=== PATIENT | female | born 1995 | race Caucasian/White ===

== ENCOUNTER 2019-04-20 09:25 | Emergency (ER) | payer BC ==
--- NOTE | 2019-04-20 09:58 | ER Document Report ---
ED Medical Screen (RME) - General Chief Complaint: Flu Symptoms Stated Complaint: VOMITING Time Seen by Provider: 04/20/19 09:53 TRAVEL OUTSIDE OF THE [place] IN LAST 30 DAYS: No - HPI Notes: 04/20/19 09:57 Patient is a 23-year-old female who is approximately 13 weeks with twins who presents complaining of harsh dry cough, body ache, intermittent fever, nausea/vomiting, occasional abdominal cramping over the past 3 days. Patient states that she is starting to feel dehydrated she has not been able to eat anything in a few days and came for evaluation. Denies HAMILTON, neck pain, CP, SOB, diarrhea, dysuria, or rash. I have treated and performed a rapid initial assessment of this patient. A comprehensive ED assessment and evaluation of the patient, analysis of test results and completion of medical decision making process will be conducted by additional ED providers. PHYSICAL EXAMINATION: GENERAL: Well-appearing, well-nourished and in no acute distress. A&Ox4. Answers questions appropriately. LUNGS: Breath sounds clear to auscultation bilaterally and equal. No wheezes rales or rhonchi. HEART: Regular rate and rhythm without murmurs, rubs, gallops. ABDOMEN: gravid abdomen. No guarding, no rebound. Normal bowel sounds present (cannot elicit thorough abd exam w/o bed, however). - Related Data Allergies/Adverse Reactions: ceftriaxone [From Rocephin] Allergy (Verified 04/20/19 09:34) Physical Exam - Vital signs Vitals: Temp Pulse Resp BP Pulse Ox 97.6 F 80 17 119/72 97 04/20/19 09:38 04/20/19 09:38 04/20/19 09:38 04/20/19 09:38 04/20/19 09:38 Course - Vital Signs Vital signs: Temp Pulse Resp BP Pulse Ox 97.6 F 80 17 119/72 97 04/20/19 09:38 04/20/19 09:38 04/20/19 09:38 04/20/19 09:38 04/20/19 09:38
[2019-04-20] MEDS ORDERED: METOCLOPRAMIDE HCL INJ/PF 10 MG/2 ML SDV IV ONE (09:59)
[2019-04-20] MEDS: NORMAL SALINE 1000 ML 1,000 ML IV PRN ×2 (10:36→11:45)
[2019-04-20 11:00] LABS: ABSOLUTE EOSINOPHILS # (AUTO) 0.1 10^3/uL (0.0-0.6); ABSOLUTE LYMPHOCYTES (AUTO) 0.8 10^3/uL (0.5-4.7); ABSOLUTE MONOCYTES (AUTO) 0.6 10^3/uL (0.1-1.4); ABSOLUTE NEUT (AUTO) 5.2 10^3/uL (1.7-8.2); BASOPHILS % (AUTO) 0.2 % (0-2); EOSINOPHILS % (AUTO) 1.2 % (0-6); HEMATOCRIT 39.6 % (36.0-47.0); HEMOGLOBIN 13.3 g/dL (12.0-15.5); LYMPHOCYTES % (AUTO) 11.9 % (13-45); MEAN CORPUSCULAR HEMOGLOBIN 28.6 pg (27.0-33.4); MEAN CORPUSCULAR HGB CONC 33.5 g/dL (32.0-36.0); MEAN CORPUSCULAR VOLUME 85 fl (80-97); MONOCYTES % (AUTO) 8.6 % (3-13); PLATELET COUNT 227 10^3/uL (150-450); RED BLOOD COUNT 4.64 10^6/uL (3.72-5.28); RED CELL DISTRIBUTION WIDTH 14.5 % (11.5-14.0); SEGMENTED NEUTROPHILS % (AUTO) 78.1 % (42-78); TOTAL CELLS COUNTED % (AUTO) 100 %; WHITE BLOOD COUNT 6.6 10^3/uL (4.0-10.5)
[2019-04-20 11:02] LABS: APPEARANCE,URINE CLOUDY; BILIRUBIN,URINE NEGATIVE (NEGATIVE); COLOR,URINE AMBER; GLUCOSE, URINE NEGATIVE (NEGATIVE); KETONES,URINE 80 mg/dL (NEGATIVE); LEUKOCYTE ESTERASE,URINE NEGATIVE (NEGATIVE); NITRITE,URINE NEGATIVE (NEGATIVE); PROTEIN,URINE 30 mg/dL (NEGATIVE); URINE SPECIFIC GRAVITY 1.024
[2019-04-20 11:34] LABS: ALANINE AMINOTRANSFERASE 31 U/L (9-52); ALKALINE PHOSPHATASE 65 U/L (38-126); ANION GAP 10 (5-19); ASPARTATE AMINO TRANSFERASE 39 U/L (14-36); BILIRUBIN,DIRECT 0.4 mg/dL (0.0-0.4); BILIRUBIN,TOTAL 0.7 mg/dL (0.2-1.3); BLOOD UREA NITROGEN 8 mg/dL (7-20); CALCIUM 9.2 mg/dL (8.4-10.2); CARBON DIOXIDE 23 mmol/L (22-30); CHLORIDE 102 mmol/L (98-107); GLUCOSE 79 mg/dL (75-110); LIPASE 56.5 U/L (23-300); POTASSIUM 4.4 mmol/L (3.6-5.0); SODIUM 134.6 mmol/L (137-145); TOTAL PROTEIN 7.2 g/dL (6.3-8.2)
--- NOTE | 2019-04-20 11:54 | RADIOLOGY REPORT (SQ) ---
EXAM DESCRIPTION: U/S [id number] TRNABD 1GES W/ODOP; U/S [id number] + EACH ADDIT GEST COMPLETED DATE/TIME: 04/20/2019 11:41 am; 04/20/2019 11:42 am REASON FOR STUDY: preg 13wks w. twins,intermittent pain, no bleeding; INTERMITTENT PAIN-TWINS COMPARISON: None. TECHNIQUE: Transvaginal static and realtime grayscale images acquired of the pelvis. Additional paulino cted spectral and color Doppler images recorded. All images stored on PACs. bHCG: Not available. CLINICAL DATES: 13 weeks 3 days LIMITATIONS: None. FINDINGS: Twin Intra-uterine gestation TYPE OF TWIN: Dichorionic Diamniotic. Two gestation sacs. Two yolk sacs. TWIN A: ULTRASOUND EGA: 13 weeks 3 days ULTRASOUND JENIFER: 10/23/2019 EFW: Not applicable. Under 20 weeks. CRL: 7.3 cm GESTATIONAL SAC: Not applicable. FP present. SURVEY: Too early to assess. FHR: 158 bpm. AMNIOTIC FLUID: Adequate amount. PLACENTA: Too early to assess. SUBCHORIONIC BLEED: No. SIZE OF BLEED: Not applicable. TWIN B: ULTRASOUND EGA: 13 weeks 5 days ULTRASOUND JENIFER: 10/21/2019 EFW: Not applicable. Under 20 weeks. CRL: 7.7 cm GESTATIONAL SAC: Not applicable. FP present. SURVEY: Too early to assess. FHR: 152 bpm. AMNIOTIC FLUID: Adequate amount. SUBCHORIONIC BLEED: No. SIZE OF BLEED: Not applicable. UTERUS: No masses. No anomalies. CERVICAL LENGTH: 4.0 cm. Closed. RIGHT ADNEXA: Ovary not identified due to poor acoustical window No adnexal free fluid. No adnexal masses. LEFT ADNEXA: Ovary not identified due to poor acoustical window No adnexal free fluid. No adnexal masses. FREE FLUID: None. OTHER: No other significant finding. IMPRESSION: LIVING TWIN INTRAUTERINE TWIN A EGA: 13 weeks 3 days. TWIN B EGA: 13 weeks 5 days. Trimester of : First - 0 to 13 weeks. TECHNICAL DOCUMENTATION: JOB ID: [id number] [employer]- All Rights Reserved Reading location - IP/workstation name: [email or web address]
--- NOTE | 2019-04-20 11:54 | RADIOLOGY REPORT (SQ) ---
EXAM DESCRIPTION: U/S [id number] TRNABD 1GES W/ODOP; U/S [id number] + EACH ADDIT GEST COMPLETED DATE/TIME: 04/20/2019 11:41 am; 04/20/2019 11:42 am REASON FOR STUDY: preg 13wks w. twins,intermittent pain, no bleeding; INTERMITTENT PAIN-TWINS COMPARISON: None. TECHNIQUE: Transvaginal static and realtime grayscale images acquired of the pelvis. Additional paulino cted spectral and color Doppler images recorded. All images stored on PACs. bHCG: Not available. CLINICAL DATES: 13 weeks 3 days LIMITATIONS: None. FINDINGS: Twin Intra-uterine gestation TYPE OF TWIN: Dichorionic Diamniotic. Two gestation sacs. Two yolk sacs. TWIN A: ULTRASOUND EGA: 13 weeks 3 days ULTRASOUND JENIFER: 10/23/2019 EFW: Not applicable. Under 20 weeks. CRL: 7.3 cm GESTATIONAL SAC: Not applicable. FP present. SURVEY: Too early to assess. FHR: 158 bpm. AMNIOTIC FLUID: Adequate amount. PLACENTA: Too early to assess. SUBCHORIONIC BLEED: No. SIZE OF BLEED: Not applicable. TWIN B: ULTRASOUND EGA: 13 weeks 5 days ULTRASOUND JENIFER: 10/21/2019 EFW: Not applicable. Under 20 weeks. CRL: 7.7 cm GESTATIONAL SAC: Not applicable. FP present. SURVEY: Too early to assess. FHR: 152 bpm. AMNIOTIC FLUID: Adequate amount. SUBCHORIONIC BLEED: No. SIZE OF BLEED: Not applicable. UTERUS: No masses. No anomalies. CERVICAL LENGTH: 4.0 cm. Closed. RIGHT ADNEXA: Ovary not identified due to poor acoustical window No adnexal free fluid. No adnexal masses. LEFT ADNEXA: Ovary not identified due to poor acoustical window No adnexal free fluid. No adnexal masses. FREE FLUID: None. OTHER: No other significant finding. IMPRESSION: LIVING TWIN INTRAUTERINE TWIN A EGA: 13 weeks 3 days. TWIN B EGA: 13 weeks 5 days. Trimester of : First - 0 to 13 weeks. TECHNICAL DOCUMENTATION: JOB ID: [id number] [employer]- All Rights Reserved Reading location - IP/workstation name: [email or web address]
--- NOTE | 2019-04-20 12:12 | ER Document Report ---
ED General - General Chief Complaint: Flu Symptoms Stated Complaint: VOMITING Time Seen by Provider: 04/20/19 09:53 Primary Care Provider: [facility] [Provider Group] - Follow up in 3-5 days Notes: Patient is a 23-year-old female, , approximately 13 weeks gravid with twins that presents to the emergency department for chief complaint of fever, nausea, vomiting and congestion. Patient reports having symptoms of sinus congestion, fever, nausea and vomiting over the past several days, and feels that she is getting dehydrated. She is had a slight cough as well. She states her children had congestion and cough. She started having the vomiting, and feels that she is getting dehydrated as well so that is why she came to the emergency department. She denies having any chest pain, shortness of breath or difficulty breathing, denies having any dysuria, hematuria. She also denies having any v aginal bleeding or discharge. Past Medical History: Denies chronic medical conditions Past Surgical History: Denies surgical history Social History: Denies tobacco, alcohol or drug use. Family History: Reviewed and noncontributory for presenting illness Allergies: Reviewed, see documented allergy list. REVIEW OF SYSTEMS: Other than noted above, the 12 point review of systems was reviewed with the patient and were negative, all pertinent findings are included in the HPI. PHYSICAL EXAMINATION: Vital signs reviewed, nursing noted reviewed. GENERAL: Well-appearing, well-nourished and in no acute distress. HEAD: Atraumatic, normocephalic. EYES: Eyes appear normal, extraocular movements intact, sclera anicteric, conjunctiva are normal. ENT: Bilateral nasal turbinate injection, oropharynx clear without exudates. Moist mucous membranes. NECK: Normal range of motion, supple without lymphadenopathy LUNGS: Breath sounds clear to auscultation bilaterally and equal. No wheezes rales or rhonchi. HEART: Heart rate tachycardic, regular rhythm ABDOMEN: Soft, gravid, nontender, normoactive bowel sounds. No rebound, guarding, or rigidity. No masses appreciated. EXTREMITIES: Nontender, good range of motion, no pitting or edema. NEUROLOGICAL: No focal neurological deficits. Moves all extremities spontaneously Motor and sensory grossly intact on exam. PSYCH: Normal mood, normal affect. SKIN: Warm, Dry, normal turgor, no rashes or lesions noted on exposed skin TRAVEL OUTSIDE OF THE [place] IN LAST 30 DAYS: No - Related Data Allergies/Adverse Reactions: ceftriaxone [From Rocephin] Allergy (Verified 04/20/19 09:34) Past Medical History - Social History Smoking Status: Never Smoker Chew tobacco use (# tins/day): No Frequency of alcohol use: None Drug Abuse: None Family History: Reviewed & Not Pertinent Patient has suicidal ideation: No Patient has homicidal ideation: No Renal/ Medical History: Denies: Hx Peritoneal Dialysis Physical Exam - Vital signs Vitals: Temp Pulse Resp BP Pulse Ox 97.6 F 80 17 119/72 97 04/20/19 09:38 04/20/19 09:38 04/20/19 09:38 04/20/19 09:38 04/20/19 09:38 Course - Re-evaluation Re-evalutation: Patient seen and examined vital signs reviewed. Laboratory data and/or imaging were ordered as appropriate for the patient's presenting symptoms and complaint, with consideration of any critical or life threatening conditions that may be associated with their obtained history and exam as noted above. Patient was treated with IV fluids, and Reglan ordered in triage Results were reviewed when available and demonstrated UA, possible urinary tract infection with 3+ bacteria, she ketones, was consistent with dehydration, no renal impairment, blood work otherwise unremarkable, obstetric ultrasound, revealed 2 live intrauterine twins The patient was re-evaluated and was stable, improved, nausea resolved Evaluation was most consistent with nausea, vomiting , UTI, dehydration, URI. Results were discussed with the patient at this point, after careful consideration I feel that that patient can be discharged from the emergency department, the patient was educated treatments and reasons to return to the emergency department based on their presumed diagnosis as noted above, they were advised to followup with a primary care physician in 2-3 days. Patient was agreeable to plan of care. *Note is created using voice recognition software and may contain spelling, syntax or grammatical errors. Laboratory 04/20/19 04/20/19 04/20/19 10:26 10:26 10:26 WBC 6.6 RBC 4.64 Hgb 13.3 Hct 39.6 MCV 85 MCH 28.6 MCHC 33.5 RDW 14.5 H Plt Count 227 Seg Neutrophils % 78.1 H Lymphocytes % 11.9 L Monocytes % 8.6 Eosinophils % 1.2 Basophils % 0.2 Absolute Neutrophils 5.2 Absolute Lymphocytes 0.8 Absolute Monocytes 0.6 Absolute Eosinophils 0.1 Absolute Basophils 0.0 Sodium 134.6 L Potassium 4.4 Chloride 102 Carbon Dioxide 23 Anion Gap 10 BUN 8 Creatinine 0.41 L Est GFR ( Amer) > 60 Est GFR (Non-Af Amer) > 60 Glucose 79 Calcium 9.2 Total Bilirubin 0.7 Direct Bilirubin 0.4 Neonat Total Bilirubin Not Reportable Neonat Direct Bilirubin Not Reportable Neonat Indirect Bili Not Reportable AST 39 H ALT 31 Alkaline Phosphatase 65 Total Protein 7.2 Albumin 4.0 Lipase 56.5 Urine Color NEVIN Urine Appearance CLOUDY Urine pH 5.0 Ur Specific [place] 1.024 Urine Protein 30 H Urine Glucose (UA) NEGATIVE Urine Ketones 80 H Urine Blood NEGATIVE Urine Nitrite NEGATIVE Urine Bilirubin NEGATIVE Urine Urobilinogen 4.0 H Ur Leukocyte Esterase NEGATIVE Urine WBC (Auto) 13 Urine RBC (Auto) 9 Urine Bacteria (Auto) 3+ Squamous Epi Cells Auto 3 Urine Mucus (Auto) FEW Urine Ascorbic Acid NEGATIVE Obstetrics Ultrasound 04/20/19 09:58 IMPRESSION: LIVING TWIN INTRAUTERINE TWIN A EGA: 13 weeks 3 days. TWIN B EGA: 13 weeks 5 days. Trimester of : First - 0 to 13 weeks. - Vital Signs Vital signs: Temp Pulse Resp BP Pulse Ox 98.0 F 84 18 111/53 L 98 04/20/19 13:00 04/20/19 13:00 04/20/19 13:00 04/20/19 13:00 04/20/19 13:00 - Laboratory Result Diagrams: 04/20/19 10:26 04/20/19 10:26 Laboratory results interpreted by me: 04/20/19 04/20/19 04/20/19 10:26 10:26 10:26 RDW 14.5 H Seg Neutrophils % 78.1 H Lymphocytes % 11.9 L Sodium 134.6 L Creatinine 0.41 L AST 39 H Urine Protein 30 H Urine Ketones 80 H Urine Urobilinogen 4.0 H Discharge - Discharge Clinical Impression: UTI (urinary tract infection) Qualifiers: Urinary tract infection type: site unspecified Hematuria presence: without hematuria Qualified Code(s): N39.0 - Urinary tract infection, site not specified URI (upper respiratory infection) Qualifiers: URI type: unspecified URI Qualified Code(s): J06.9 - Acute upper respiratory infection, unspecified Condition: Stable Disposition: HOME, SELF-CARE Instructions: Upper Respiratory Illness ([facility]), Urinary Tract Infection ([facility]) Additional Instructions: Please take the prescribed medications as directed, and complete the entire course of antibiotics, I have provided the [facility] office that is located here in [place], to follow-up with. Prescriptions: Metoclopramide HCl [Reglan 10 mg Tablet] 1 tab PO Q8H PRN #15 tablet PRN Reason: nausea, vomiting RX: Nitrofurantoin Macrocrystal [Macrodantin] 100 mg PO BID #10 capsule Referrals: [facility] [Provider Group] - Follow up in 3-5 days
[2019-04-20 13:03] VITALS: BP 111/53
== END 2019-04-20 13:02 | disposition home or self-care (01) ==
LOC: ER 09:25
DX: O23.41 Unspecified infection of urinary tract in pregnancy, first trimester (principal); J06.9 Acute upper respiratory infection, unspecified; O21.9 Vomiting of pregnancy, unspecified; O30.001 Twin pregnancy, unspecified number of placenta and unspecified number of amniotic sacs, first trimester; Z3A.13 13 weeks gestation of pregnancy
CPT/HCPCS: 99284; 96361; 96374; 36415; 87086; 83690; 85025; 87088; 80053; 81001; 76801; 76802; J2765; J7030

== ENCOUNTER 2019-08-31 09:51 | Outpatient (CLI) | payer BC ==
[2019-08-31 10:44] LABS: BACTERIA (WET MOUNT) 4+ BACTERIA SEEN; EPITHELIALS (WET MOUNT) 4+ EPITHELIALS SEEN; T.VAGINALIS (WET MOUNT) NO TRICHOMONAS SEEN; WBCS (WET MOUNT) FEW WBCS SEEN; YEAST (WET MOUNT) NO YEAST SEEN
[2019-08-31 10:49] LABS: APPEARANCE,URINE CLEAR; BILIRUBIN,URINE NEGATIVE (NEGATIVE); COLOR,URINE YELLOW; GLUCOSE, URINE NEGATIVE (NEGATIVE); KETONES,URINE NEGATIVE (NEGATIVE); LEUKOCYTE ESTERASE,URINE TRACE (NEGATIVE); NITRITE,URINE NEGATIVE (NEGATIVE); PROTEIN,URINE NEGATIVE (NEGATIVE); UROBILINOGEN,URINE NEGATIVE mg/dL (<2.0)
[2019-08-31 10:51] LABS: URINE SPECIFIC GRAVITY 1.017
[2019-08-31 11:17] LABS: URINE AMPHETAMINES SCREEN NEGATIVE; URINE BARBITURATES SCREEN NEGATIVE; URINE BENZODIAZEPINES SCREEN NEGATIVE; URINE COCAINE SCREEN NEGATIVE; URINE MARIJUANA (THC) SCREEN NEGATIVE; URINE METHADONE SCREEN NEGATIVE; URINE PHENCYCLIDINE SCREEN NEGATIVE
--- NOTE | 2019-08-31 11:45 | RADIOLOGY REPORT (SQ) ---
EXAM DESCRIPTION: U/S OB LIMITED COMPLETED DATE/TIME: 08/31/2019 11:32 am REASON FOR STUDY: cervical length COMPARISON: 08/31/2019 TECHNIQUE: Limited transabdominal grayscale ultrasound for evaluation of specific requested obstetri fabricio parameters. LIMITATIONS: None. FINDINGS: Limited imaging shows the cervix to be closed and measure 3.5 cm. heart motion was confirmed on the biophysical profile performed earlier. IMPRESSION: LIMITED OBSTETRICAL ULTRASOUND WITH MEASURED PARAMETERS DELINEATED ABOVE. Trimester of : Third trimester - 28 weeks to delivery. TECHNICAL DOCUMENTATION: JOB ID: [id number]- All Rights Reserved Reading location - IP/workstation name: [email or web address]
--- NOTE | 2019-08-31 11:48 | RADIOLOGY REPORT (SQ) ---
EXAM DESCRIPTION: U/S PROFILE W/O STRESS COMPLETED DATE/TIME: 08/31/2019 11:32 am REASON FOR STUDY: twin , BPP on both babies COMPARISON: None. TECHNIQUE: Limited shahid-scale realtime and static images of the fetus to measure specified parameter s. LIMITATIONS: None. FINDINGS: BABY A HEART RATE: 158 beats per minute. LV P 4.5 cm: BREATHING MOVEMENT: 2 points. MOVEMENT: 2 points. POSTURE AND TONE: 2 points. QUALITATIVE HARRIET: 2 points. OTHER: No other significant finding. IMPRESSION: BIOPHYSICAL PROFILE: 06/10. Trimester of : Third - 28 weeks to delivery COMMENT: BREATHING MOVEMENTS: 2 POINTS: PRESENT 0 POINTS: ABSENT MOTION: 2 POINTS: PRESENT 0 POINTS: ABSENT TONE: 2 POINTS: PRESENT 0 POINTS: ABSENT AMNIOTIC FLUID VOLUME: 2 POINTS: LARGEST POCKET GREATER THAN 2 CM DEPTH. 0 POINTS: NO POCKET OF 2 CM. TECHNICAL DOCUMENTATION: JOB ID: [id number] [employer]- All Rights Reserved Reading location - IP/workstation name: [email or web address]
--- NOTE | 2019-08-31 11:49 | RADIOLOGY REPORT (SQ) ---
EXAM DESCRIPTION: U/S PROFILE W/O STRESS COMPLETED DATE/TIME: 08/31/2019 11:32 am REASON FOR STUDY: twin , BPP on both babies COMPARISON: None. TECHNIQUE: Limited shahid-scale realtime and static images of the fetus to measure specified parameter s. LIMITATIONS: None. FINDINGS: BABY B HEART RATE: 150 beats per minute. LV P: 5 cm. BREATHING MOVEMENT: 2 points. MOVEMENT: 2 points. POSTURE AND TONE: 2 points. QUALITATIVE HARRIET: 2 points. OTHER: No other significant finding. IMPRESSION: BIOPHYSICAL PROFILE: 06/10. Trimester of : Third - 28 weeks to delivery COMMENT: BREATHING MOVEMENTS: 2 POINTS: PRESENT 0 POINTS: ABSENT MOTION: 2 POINTS: PRESENT 0 POINTS: ABSENT TONE: 2 POINTS: PRESENT 0 POINTS: ABSENT AMNIOTIC FLUID VOLUME: 2 POINTS: LARGEST POCKET GREATER THAN 2 CM DEPTH. 0 POINTS: NO POCKET OF 2 CM. TECHNICAL DOCUMENTATION: JOB ID: [id number] [employer]- All Rights Reserved Reading location - IP/workstation name: [email or web address]
[2019-08-31 12:15] LABS: CHLAM PCR NOT DETECTED (NOT DETECT)
[2019-08-31] MEDS ORDERED: BETAMET ACET/BETAMET NA INJ 6 MG/1 ML ONE (12:25)
[2019-08-31] MEDS ORDERED: BETAMET ACET/BETAMET NA INJ 6 MG/1 ML IM ONE ×2 (12:37→13:00)
--- NOTE | 2019-08-31 13:03 | Non Stress Test Report ---
Non Stress Test Datetime Report Generated by CPN: 08/31/2019 13:02 DEMOGRAPHIC EGA NST: 32.3 INDICATION Indication for Study: Multiple Gestation; Ordered by Provider Indication for Study (NST) Other: LC MONITORING Monitor Explained: Monitor Explained; Test Explained; Patient Verbalized Understanding Time on Monitor: 08/31/2019 11:30 Time off Monitor: 08/31/2019 12:25 NST Duration: 55 NST INTERVENTIONS NST Interventions: None Physician Notified NST: Dr. Swartz BABY A: [id number] BABY A Movement : Present Contraction Frequency : irregular FHR Baseline : 140 Accelerations : 15X15 Decelerations : None Variability : Moderate 6-25bpm NST Review: Meets Criteria for Reactive NST NST Review and Verified By : Ana Lilia Wilson RN NST Results: Reactive BABY B Movement: Present FHR Baseline: 145 Accelerations: 15X15 Decelerations: None Variability: Moderate 6-25bpm NST Review: Meets Criteria for Reactive NST NST Reviewed And Verified By: Ana Lilia Wilson, RN NST Results: Reactive NST REPORT Report Trigger: Send Report
== END 2019-08-31 12:44 | disposition home or self-care (01) ==
LOC: LC 09:51
PROVIDERS: ATTEND Student in an Organized Health Care Education/Training Program
PROC: 4A1HXCZ Monitoring of Products of Conception, Cardiac Rate, External Approach (ICD-10-PCS; principal; 2019-08-31)
DX: O30.003 Twin pregnancy, unspecified number of placenta and unspecified number of amniotic sacs, third trimester (principal); Z3A.32 32 weeks gestation of pregnancy
CPT/HCPCS: 59899; 96372; 87210; 81001; 80307; 87491; 87591; 84112; 76815; 76819; J0702

== ENCOUNTER → 2019-09-01 | Outpatient (CLI) | payer BC ==
[~2019-09-01] MED LIST: BETAMET ACET/BETAMET NA INJ 6 MG/1 ML IM ONE; BETAMET ACET/BETAMET NA INJ 6 MG/1 ML ONE
== END ==
LOC: LC 12:40
PROVIDERS: ATTEND Student in an Organized Health Care Education/Training Program
DX: O47.9 False labor, unspecified (principal)
CPT/HCPCS: 96372; J0702

== ENCOUNTER 2019-09-06 17:12 | Outpatient (CLI) | payer BC ==
[2019-09-06 18:06] LABS: APPEARANCE,URINE CLEAR; BILIRUBIN,URINE NEGATIVE (NEGATIVE); COLOR,URINE STRAW; GLUCOSE, URINE NEGATIVE (NEGATIVE); KETONES,URINE NEGATIVE (NEGATIVE); LEUKOCYTE ESTERASE,URINE NEGATIVE (NEGATIVE); NITRITE,URINE NEGATIVE (NEGATIVE); PROTEIN,URINE NEGATIVE (NEGATIVE); URINE SPECIFIC GRAVITY 1.005; UROBILINOGEN,URINE NEGATIVE mg/dL (<2.0)
[2019-09-06 18:21] LABS: URINE AMPHETAMINES SCREEN NEGATIVE; URINE BARBITURATES SCREEN NEGATIVE; URINE BENZODIAZEPINES SCREEN NEGATIVE; URINE COCAINE SCREEN NEGATIVE; URINE MARIJUANA (THC) SCREEN NEGATIVE; URINE METHADONE SCREEN NEGATIVE; URINE PHENCYCLIDINE SCREEN NEGATIVE
--- NOTE | 2019-09-06 20:39 | Non Stress Test Report ---
Non Stress Test Datetime Report Generated by CPN: 09/06/2019 20:39 DEMOGRAPHIC EGA NST: 33.2 INDICATION Indication for Study: Ordered by Provider URINE RESULTS Urine Protein, NST: Negative MONITORING Monitor Explained: Monitor Explained; Test Explained; Patient Verbalized Understanding Time on Monitor: 09/06/2019 20:05 Time off Monitor: 09/06/2019 20:25 NST Duration: 20 NST INTERVENTIONS NST Interventions: PO Hydration Physician Notified NST: Dr. Younger BABY A: [id number] BABY A Movement : Present Contraction Frequency : None FHR Baseline : 145 Accelerations : 15X15 Decelerations : None Variability : Moderate 6-25bpm NST Review: Meets Criteria for Reactive NST NST Review and Verified By : RN NST Results: Reactive BABY B Movement: Present FHR Baseline: 135 Accelerations: 15X15 Decelerations: None Variability: Moderate 6-25bpm NST Review: Meets Criteria for Reactive NST NST Reviewed And Verified By: RN NST Results: Reactive NST REPORT Report Trigger: Send Report
== END 2019-09-06 20:38 | disposition home or self-care (01) ==
LOC: LC 17:12
PROVIDERS: ATTEND Obstetrics & Gynecology
PROC: 4A1HXCZ Monitoring of Products of Conception, Cardiac Rate, External Approach (ICD-10-PCS; principal; 2019-09-06)
DX: O47.03 False labor before 37 completed weeks of gestation, third trimester (principal); Z3A.33 33 weeks gestation of pregnancy
CPT/HCPCS: 80307; 81001

== ENCOUNTER 2019-09-16 11:14 | Inpatient (IN) | payer BC ==
[2019-09-16 12:22] LABS: APPEARANCE,URINE SLIGHTLY-CLOUDY; BILIRUBIN,URINE NEGATIVE (NEGATIVE); COLOR,URINE YELLOW; GLUCOSE, URINE NEGATIVE (NEGATIVE); KETONES,URINE NEGATIVE (NEGATIVE); LEUKOCYTE ESTERASE,URINE NEGATIVE (NEGATIVE); NITRITE,URINE NEGATIVE (NEGATIVE); PROTEIN,URINE 30 mg/dL (NEGATIVE); UROBILINOGEN,URINE NEGATIVE mg/dL (<2.0)
[2019-09-16 12:40] LABS: URINE AMPHETAMINES SCREEN NEGATIVE; URINE BARBITURATES SCREEN NEGATIVE; URINE BENZODIAZEPINES SCREEN NEGATIVE; URINE COCAINE SCREEN NEGATIVE; URINE MARIJUANA (THC) SCREEN NEGATIVE; URINE METHADONE SCREEN NEGATIVE; URINE PHENCYCLIDINE SCREEN NEGATIVE
[2019-09-16] MEDS ORDERED: CLINDAMYCIN 900 MG/D5W RTU 900 MG/50 ML RTUPB IV ONE ×2 (12:43→13:38)
[2019-09-16] MEDS ORDERED: CITRIC ACID/SODIUM CITRATE ORAL SOLN 15 ML UDCUP PO ONE (12:45)
--- NOTE | 2019-09-16 12:52 | Admission Physical ---
Datetime Report Generated by CPN: 09/16/2019 12:52 CURRENT ADMISSION Chief Complaint: Maternal Discomfort; Sent from OB Office for Evaluation and Treatment - Please Specify Admit Impression : , Intrauterine ; Active Labor Admit Impression- Other: Di/Di Twins Admit Plan: Admit to Unit; Initiate Section Protocol ALLERGIES Medication Allergies: Yes Medication Allergies: ceftriaxone (09/01/2019) Latex: No Latex Allergies OBSTETRICAL HISTORY EDC: 10/23/2019 00:00 : 3 Para: 2 Livin Gestational Diabetes: No Rh Sensitization: No Incompetent Cervix: No : No Infertility: No ART Treatment: No Uterine Anomaly: No IUGR: No Hx Previous C/S: No Macrosomia: No Hx Loss/Stillborn: No PIH: No Hx : No Placenta Previa/Abruption: No Depression/PP Depression: No PTL/PROM: No Post Hemorrhage: No SEE RECORDS Alcohol: No Marijuana : No Cocaine: No Other Illicit Drugs: No Cigarettes: Never Smoker. 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 Heart Disease: No Hosp/Surgery: Yes Autoimmune Disorder: No Anesthetic Complications: No Kidney Disease: No Abnormal Pap Smear: No Neuro/Epilepsy: No Psychiatric Disorders: No Other Medical Diseases: No Hepatitis/Liver Disease: No Significant Family History: No Varicosities/Phlebitis: No Trauma/Violence : No Thyroid Dysfunction: No INFECTIOUS HISTORY Gonorrhea: No Genital Herpes: No Chlamydia: No Tuberculosis: No Syphilis: No Hepatitis: No HIV/AIDS Exposure: No Rash or Viral Illness: No HPV: No PHYSICAL EXAM General: Normal HEENT: Normal Neurologic: Normal Thyroid: Normal Heart: Normal Lungs: Normal Breast: Normal Back: Normal Abdomen: Normal Genitourinary Exam: Normal Extremities: Normal DTRs: Normal Pelvic Type: Adequate Vital Signs: Reviewed; Within Normal Limits VAGINAL EXAM Dilatation: 5 Effacement: 70 Station: -1 MEMBRANES Membranes: Intact FETUS A EGA: 34.5 Monitoring: External US FHR- Baseline: 150 Variability: Moderate 6-25bpm Accelerations: 15X15 Decelerations: None FHR Category: Category I Admit Comment: at 34.5 wks w/ Twins. Pt sent over from the office after c/o lower uterine cramping. Pt was 3cm in the office. She is a planned Primary due to baby B being breech and pt desires a BTL. Pt has become more uncomfortable here on Labor and Delivery unit. VE /-1, baby a Vtx presentation on exam. Dr Corcoran is the attending MD today, informed him of pts cervical change. Will proceed w/ Primary w/ BTL of twin gestation. FETUS B Monitoring: External US Variability: Moderate 6-25bpm Accelerations: 15X15 Decelerations: None FHR Category: Category I PLANS FOR LABOR AND DELIVERY Labor and Delivery: None Pain Management: Spinal Feeding Preference: Breast Benefit of Breast Feed Discussed: Yes Circumcision: Yes INFORMED CONSENT Assignment: Irina Corcoran MD Signature: with User ID: [email or web address] : with User ID: [email or web address]
[2019-09-16 13:38] LABS: ABSOLUTE EOSINOPHILS # (AUTO) 0.1 10^3/uL (0.0-0.6); ABSOLUTE LYMPHOCYTES (AUTO) 1.7 10^3/uL (0.5-4.7); ABSOLUTE MONOCYTES (AUTO) 0.8 10^3/uL (0.1-1.4); ABSOLUTE NEUT (AUTO) 7.6 10^3/uL (1.7-8.2); BASOPHILS % (AUTO) 0.4 % (0-2); EOSINOPHILS % (AUTO) 0.7 % (0-6); HEMATOCRIT 31.4 % (36.0-47.0); LYMPHOCYTES % (AUTO) 16.9 % (13-45); MEAN CORPUSCULAR HEMOGLOBIN 21.9 pg (27.0-33.4); MEAN CORPUSCULAR HGB CONC 31.9 g/dL (32.0-36.0); MEAN CORPUSCULAR VOLUME 69 fl (80-97); MONOCYTES % (AUTO) 7.9 % (3-13); PLATELET COUNT 191 10^3/uL (150-450); RED BLOOD COUNT 4.58 10^6/uL (3.72-5.28); RED CELL DISTRIBUTION WIDTH 20.1 % (11.5-14.0); SEGMENTED NEUTROPHILS % (AUTO) 74.1 % (42-78); TOTAL CELLS COUNTED % (AUTO) 100 %; WHITE BLOOD COUNT 10.3 10^3/uL (4.0-10.5)
[2019-09-16] MEDS ORDERED: CITRIC ACID/SODIUM CITRATE ORAL SOLN 15 ML UDCUP ONE (13:45)
[2019-09-16] MEDS ORDERED: KETOROLAC TROMETHAMINE INJ/PF 30 MG/1 ML SDV ONE (14:13)
[2019-09-16] MEDS ORDERED: OXYTOCIN 10 UNIT/ML VIAL ONE (14:13)
[2019-09-16] MEDS ORDERED: MIDAZOLAM 2 MG/2 ML INJ ONE (14:13)
[2019-09-16] MEDS ORDERED: EPHEDRINE SULFATE INJ 50 MG/1 ML AMPULE ONE (14:13)
[2019-09-16] MEDS ORDERED: FENTANYL CITRATE INJ/PF 100 MCG/2 ML AMPUL ONE (14:13)
[2019-09-16] MEDS ORDERED: PHENYLEPHRINE HCL INJ/PF 10 MG/1 ML SDV ONE (14:14)
[2019-09-16] MEDS ORDERED: OXYTOCIN/NORMAL SALINE 20 UNIT/1,000 ML RTUINJ ONE (14:14)
[2019-09-16] MEDS ORDERED: ONDANSETRON HCL INJ/PF 4 MG/2 ML SDV ONE (14:14)
[2019-09-16] MEDS ORDERED: RINGERS SOLUTION,LACTATED 1,000 ML IV PRN (15:40)
[2019-09-16] MEDS ORDERED: ACETAMINOPHEN 325 MG TABLET PO PRN (15:40)
[2019-09-16] MEDS ORDERED: OXYTOCIN/NORMAL SALINE 20 UNIT/1,000 ML RTUINJ IV PRN (15:40)
[2019-09-16] MEDS ORDERED: DIPH/PERTUSS(ACELL)/TETANUS VAC/PF 0.5 ML SYR (>=10YO) IM PRN (15:40)
[2019-09-16] MEDS ORDERED: MEASLES,MUMPS&RUBELLA VACC/PF 0.5 ML VIAL SUBCUT PRN (15:40)
[2019-09-16] MEDS ORDERED: OXYCODONE-ACETAMINOPHEN 5-325 MG TABLET PO PRN (15:40)
[2019-09-16] MEDS ORDERED: ACETAMINOPHEN 1,000 MG/100 ML RTUPB IV PRN (15:40)
[2019-09-16] MEDS ORDERED: PROMETHAZINE HCL INJ 25 MG/1 ML VIAL IV PRN (15:40)
--- NOTE | 2019-09-16 15:47 | Operative Report ---
Operative Report DATE OF SURGERY: 09/16/19 PREOPERATIVE DIAGNOSIS: Twins with twin B being breech and patient desires tubal ligation with Filshie clips POSTOPERATIVE DIAGNOSIS: Same OPERATION: Primary via low transverse uterine incision and tubal ligation with Filshie clips SURGEON: TERESA BECK ANESTHESIA: Spinal TISSUE REMOVED OR ALTERED: Placenta COMPLICATIONS: None ESTIMATED BLOOD LOSS: 400 cc INTRAOPERATIVE FINDINGS: Viable twins, normal uterus tubes ovaries PROCEDURE: Patient was taken to the OR and placed in supine position after her spinal anesthesia. She is prepared and draped in sterile fashion. Stiles was placed for drainage of the bladder. Low transverse incision was made and carried down the level of the fascia. The fascial incision was made with knife and extended bilaterally with curved Carney scissors. The fascia was off the rectus muscles using sharp and blunt dissection. The rectus muscles are in the midline. The peritoneum was entered without incident. Bladder blade was placed in uterine segment was identified. A low transverse incision was made creating a bladder flap. Bladder blade was placed low transverse uterine incision was made with the knife and extended with fingertips. Baby A was delivered with some fundal pressure. Mouth and nose were suctioned free. The cord is doubly clamped and cut. Baby is passed off to the president/gm production & live experiences in attendance. Baby B was delivered in a breech fashion. The cord was clamped and cut. This baby also was passed off to the president/gm production & live experiences. The placentas were manually extracted with trailing membranes. The uterus was externalized wrapped in a moist lap sponge. Uterine contents wiped free. Uterus was closed with a running locking layer of 0 chromic suture using the second layer to imbricate the first completing a double layer closure of the uterus. An [place] stitch was placed using 0 chromic at the left side of the uterine incision to site stop some oozing. The serosa was closed with a running 2-0 chromic stitch. Filshie clips were placed bilaterally at the mid isthmic portion of each tube. The pelvis was irrigated and suctioned free of fluid the uterus was replaced in the abdomen. The abdominal wall peritoneum was closed with running 2-0 chromic stitch. Fascia was closed with a running 0 Vicryl in 2 segments. Oksana's layer was brought together with 0 plain gut stitch and the skin was closed with running subcuticular 4-0 undyed Vicryl stitch. The wound was dressed mother and baby did well.
[2019-09-16] MEDS ORDERED: ACETAMINOPHEN 1,000 MG/100 ML RTUPB IV ONE (16:42)
[2019-09-16] MEDS ORDERED: HYDROMORPHONE HCL INJ/PF 2 MG/ML AMPULE ONE (17:20)
[2019-09-16] MEDS: HYDROMORPHONE HCL INJ/PF 2 MG/ML AMPULE IV PRN ×2 (17:23→21:33)
[2019-09-16] MEDS ORDERED: IBUPROFEN 800 MG TABLET PO SCH (18:00)
[2019-09-16] MEDS: DOCUSATE SODIUM 100 MG CAPSULE PO SCH (18:56)
[2019-09-16] MEDS: OXYCODONE-ACETAMINOPHEN 5-325 MG TABLET PO PRN (18:56)
[2019-09-16] MEDS: KETOROLAC TROMETHAMINE INJ/PF 30 MG/1 ML SDV IV SCH (22:59)
[2019-09-17] MEDS: OXYCODONE-ACETAMINOPHEN 5-325 MG TABLET PO PRN ×4 (01:02→19:41)
[2019-09-17] MEDS: HYDROMORPHONE HCL INJ/PF 2 MG/ML AMPULE IV PRN (03:39)
[2019-09-17] MEDS: KETOROLAC TROMETHAMINE INJ/PF 30 MG/1 ML SDV IV SCH (06:27)
[2019-09-17] MEDS: SIMETHICONE 80 MG TAB.CHEW PO PRN (07:58)
[2019-09-17] MEDS: DOCUSATE SODIUM 100 MG CAPSULE PO SCH ×2 (10:41→19:40)
[2019-09-17] MEDS: PRENATAL VITAMIN W DHA CAPSULE PO SCH (10:41)
[2019-09-17 11:54] LABS: ABSOLUTE EOSINOPHILS # (AUTO) 0.1 10^3/uL (0.0-0.6); ABSOLUTE LYMPHOCYTES (AUTO) 1.5 10^3/uL (0.5-4.7); ABSOLUTE MONOCYTES (AUTO) 0.9 10^3/uL (0.1-1.4); ABSOLUTE NEUT (AUTO) 11.6 10^3/uL (1.7-8.2); BASOPHILS % (AUTO) 0.2 % (0-2); EOSINOPHILS % (AUTO) 0.5 % (0-6); HEMATOCRIT 30.6 % (36.0-47.0); HEMOGLOBIN 9.4 g/dL (12.0-15.5); LYMPHOCYTES % (AUTO) 10.9 % (13-45); MEAN CORPUSCULAR HEMOGLOBIN 21.4 pg (27.0-33.4); MEAN CORPUSCULAR HGB CONC 30.8 g/dL (32.0-36.0); MEAN CORPUSCULAR VOLUME 69 fl (80-97); MONOCYTES % (AUTO) 6.7 % (3-13); PLATELET COUNT 165 10^3/uL (150-450); RED BLOOD COUNT 4.42 10^6/uL (3.72-5.28); RED CELL DISTRIBUTION WIDTH 20.3 % (11.5-14.0); SEGMENTED NEUTROPHILS % (AUTO) 81.7 % (42-78); TOTAL CELLS COUNTED % (AUTO) 100 %; WHITE BLOOD COUNT 14.2 10^3/uL (4.0-10.5)
--- NOTE | 2019-09-17 12:40 | PDOC PROGRESS REPORT ---
Subjective-OB Progress Note for:: 09/17/19 Subjective: reports bleeding slowing, pain controlled with current meds, denies needs, not passing gas, took simethicone this morning Physical Exam (OB) Vital Signs: Temp Pulse Resp BP Pulse Ox 98.2 F 88 16 105/72 95 09/17/19 07:23 09/17/19 07:23 09/17/19 04:20 09/17/19 07:23 09/17/19 07:23 Intake & Output 09/16/19 09/17/19 09/18/19 06:59 06:59 06:59 Intake Total 1600 Output Total 1300 Balance 300 Weight 105.7 kg - PIH/Pre-Eclampsia Clonus: Negative - Dressing Removed: No Incision: Dressing, Well Approximated Closure Type: op site - Abdomen Description: Soft, Round Hernia Present: No Bowel Sounds: Hypoactive Fundal Description: Firm, Midline Fundal Height: 1/u - 2/u - Abdominal Distension: Distended - slight Tenderness: Nontender - Extremities Lower extremities: Pallavi's sign - neg Calf: Normal, Nontender Objective-Diagnostic Laboratory: 09/17/19 10:59 09/16/19 09/16/19 09/17/19 13:16 13:16 10:59 WBC 10.3 14.2 H RBC 4.58 4.42 Hgb 10.0 L 9.4 L Hct 31.4 L 30.6 L MCV 69 L 69 L MCH 21.9 L 21.4 L MCHC 31.9 L 30.8 L RDW 20.1 H 20.3 H Plt Count 191 165 Seg Neutrophils % 74.1 81.7 H Blood Type A POSITIVE Antibody Screen NEGATIVE Assessment and Plan(PN) - Assessment and Plan (1) labor in third trimester Qualifiers: labor delivery status: with delivery in third trimester Is this a current diagnosis for this admission?: Yes (2) Twin , delivered by section, current hospitalization Is this a current diagnosis for this admission?: Yes - Time Spent with Patient Time with patient: Less than 15 minutes Medications reviewed and adjusted accordingly: Yes - Disposition Anticipated Discharge: Home Within: within 48 hours
[2019-09-17] MEDS ORDERED: IBUPROFEN 800 MG TABLET PO SCH (13:30)
[2019-09-17] MEDS ORDERED: HYDROMORPHONE HCL 2 MG TABLET PO PRN (13:57)
[2019-09-17] MEDS: IBUPROFEN 800 MG TABLET PO SCH ×2 (14:11→21:17)
[2019-09-17] MEDS: HYDROMORPHONE HCL 2 MG TABLET PO PRN (21:17)
[2019-09-18] MEDS: SIMETHICONE 80 MG TAB.CHEW PO PRN (02:52)
[2019-09-18] MEDS: OXYCODONE-ACETAMINOPHEN 5-325 MG TABLET PO PRN ×4 (02:53→18:41)
[2019-09-18] MEDS: HYDROMORPHONE HCL 2 MG TABLET PO PRN (05:47)
[2019-09-18] MEDS: IBUPROFEN 800 MG TABLET PO SCH ×3 (05:48→22:18)
--- NOTE | 2019-09-18 08:29 | PDOC PROGRESS REPORT ---
Subjective-OB Progress Note for:: 09/18/19 Subjective: reports bleeding slowing, pain controlled with current meds, + passing gas, denies needs Physical Exam (OB) Vital Signs: Temp Pulse Resp BP Pulse Ox 97.8 F 80 16 116/68 96 09/18/19 03:04 09/18/19 03:04 09/18/19 03:04 09/18/19 03:04 09/18/19 03:04 Intake & Output 09/17/19 09/18/19 09/19/19 06:59 06:59 06:59 Intake Total 1600 1600 Output Total 1300 Balance 300 1600 Weight 105.7 kg - Dressing Removed: No - opsite, dry drain Incision: Dressing Closure Type: op site - Abdomen Description: Soft, Round Hernia Present: No Fundal Description: Firm, Midline Fundal Height: u/u - u/2 - Abdominal Inspection: Normal Distension: No distension Tenderness: Nontender - Extremities Lower extremities: Pallavi's sign - neg Calf: Normal, Nontender Objective-Diagnostic Laboratory: 09/17/19 10:59 09/17/19 10:59 WBC 14.2 H RBC 4.42 Hgb 9.4 L Hct 30.6 L MCV 69 L MCH 21.4 L MCHC 30.8 L RDW 20.3 H Plt Count 165 Seg Neutrophils % 81.7 H Assessment and Plan(PN) - Assessment and Plan (1) labor in third trimester Qualifiers: labor delivery status: with delivery in third trimester Is this a current diagnosis for this admission?: Yes (2) Twin , delivered by section, current hospitalization Is this a current diagnosis for this admission?: Yes - Time Spent with Patient Medications reviewed and adjusted accordingly: Yes - Disposition Anticipated Discharge: Home Within: within 24 hours
[2019-09-18] MEDS: PRENATAL VITAMIN W DHA CAPSULE PO SCH (10:36)
[2019-09-18] MEDS: DOCUSATE SODIUM 100 MG CAPSULE PO SCH ×3 (10:36→18:41)
[2019-09-19] MEDS: OXYCODONE-ACETAMINOPHEN 5-325 MG TABLET PO PRN ×2 (04:14→09:36)
[2019-09-19] MEDS: IBUPROFEN 800 MG TABLET PO SCH ×2 (05:14→13:55)
[2019-09-19] MEDS: PRENATAL VITAMIN W DHA CAPSULE PO SCH (09:37)
[2019-09-19] MEDS: DOCUSATE SODIUM 100 MG CAPSULE PO SCH ×2 (09:38→17:24)
--- NOTE | 2019-09-19 11:38 | PDOC DISCHARGE SUMMARY ---
Impression - Admit/DC Date/PCP Admission Date/Primary Care Provider: 09/16/19 12:40 TERESA BECK MD Discharge Date: 09/19/19 - Discharge Diagnosis (1) labor in third trimester Is this a current diagnosis for this admission?: Yes (2) Twin , delivered by section, current hospitalization Is this a current diagnosis for this admission?: Yes - Additional Information Discharge Diet: Regular Discharge Activity: Balance Activity w/Rest, No Lifting Over 10 Pounds, No Lifting/Push/Pulling, Pelvic Rest, No tub bath Referrals: [facility] [Provider Group] Prescriptions: Ibuprofen [Motrin 800 mg Tablet] 800 mg PO Q8HP PRN #90 tablet PRN Reason: Oxycodone HCl/Acetaminophen [Percocet 5-325 mg Tablet] 1 tab PO Q4HP PRN #30 tablet PRN Reason: Home Medications: Vitamin [-U Multiple Vitamin Capsule] 1 tab PO DAILY 08/31/19 Ibuprofen [Motrin 800 mg Tablet] 800 mg PO Q8HP PRN #90 tablet 09/19/19 Oxycodone HCl/Acetaminophen [Percocet 5-325 mg Tablet] 1 tab PO Q4HP PRN #30 tablet 09/19/19 HPI Gestational Age: 34+5 Reason(s) for Admission: Onset of Labor Procedures: NST Intrapartum Procedure(s): : Low Cervical, Transverse Hospital Course Hospital Course: PL then c/s for baby B breech. normal PP day #3, ready for discharge Results Laboratory Results: WBC 14.2 10^3/uL (4.0-10.5) H 09/17/19 10:59 RBC 4.42 10^6/uL (3.72-5.28) 09/17/19 10:59 Hgb 9.4 g/dL (12.0-15.5) L 09/17/19 10:59 Hct 30.6 % (36.0-47.0) L 09/17/19 10:59 MCV 69 fl (80-97) L 09/17/19 10:59 MCH 21.4 pg (27.0-33.4) L 09/17/19 10:59 MCHC 30.8 g/dL (32.0-36.0) L 09/17/19 10:59 RDW 20.3 % (11.5-14.0) H 09/17/19 10:59 Plt Count 165 10^3/uL (150-450) 09/17/19 10:59 Lymph % (Auto) 10.9 % (13-45) L 09/17/19 10:59 Tripp % (Auto) 6.7 % (3-13) 09/17/19 10:59 Eos % (Auto) 0.5 % (0-6) 09/17/19 10:59 Baso % (Auto) 0.2 % (0-2) 09/17/19 10:59 Absolute Neuts (auto) 11.6 10^3/uL (1.7-8.2) H 09/17/19 10:59 Absolute Lymphs (auto) 1.5 10^3/uL (0.5-4.7) 09/17/19 10:59 Absolute Monos (auto) 0.9 10^3/uL (0.1-1.4) 09/17/19 10:59 Absolute Eos (auto) 0.1 10^3/uL (0.0-0.6) 09/17/19 10:59 Absolute Basos (auto) 0.0 10^3/uL (0.0-0.2) 09/17/19 10:59 Seg Neutrophils % 81.7 % (42-78) H 09/17/19 10:59 Urine Color YELLOW 09/16/19 11:25 Urine Appearance SLIGHTLY-CLOUDY 09/16/19 11:25 Urine pH 6.0 (5.0-9.0) 09/16/19 11:25 Ur Specific [place] 1.020 09/16/19 11:25 Urine Protein 30 mg/dL (NEGATIVE) H 09/16/19 11:25 Urine Glucose (UA) NEGATIVE mg/dL (NEGATIVE) 09/16/19 11:25 Urine Ketones NEGATIVE mg/dL (NEGATIVE) 09/16/19 11:25 Urine Blood NEGATIVE (NEGATIVE) 09/16/19 11:25 Urine Nitrite NEGATIVE (NEGATIVE) 09/16/19 11:25 Urine Bilirubin NEGATIVE (NEGATIVE) 09/16/19 11:25 Urine Urobilinogen NEGATIVE mg/dL (<2.0) 09/16/19 11:25 Ur Leukocyte Esterase NEGATIVE (NEGATIVE) 09/16/19 11:25 Urine WBC (Auto) 3 /HPF 09/16/19 11:25 Urine Bacteria (Auto) TRACE /HPF 09/16/19 11:25 Squamous Epi Cells Auto 2 /HPF 09/16/19 11:25 Urine Mucus (Auto) FEW /LPF 09/16/19 11:25 Urine Ascorbic Acid NEGATIVE (NEGATIVE) 09/16/19 11:25 Membranes Rupture NEGATIVE (NEGATIVE) 09/16/19 11:54 Urine Opiates Screen NEGATIVE 09/16/19 11:25 Urine Methadone Screen NEGATIVE 09/16/19 11:25 Ur Barbiturates Screen NEGATIVE 09/16/19 11:25 Ur Phencyclidine Scrn NEGATIVE 09/16/19 11:25 Ur Amphetamines Screen NEGATIVE 09/16/19 11:25 U Benzodiazepines Scrn NEGATIVE 09/16/19 11:25 Urine Cocaine Screen NEGATIVE 09/16/19 11:25 U Marijuana (THC) Screen NEGATIVE 09/16/19 11:25 RPR NONREACTIVE (NONREACTIVE) 09/16/19 13:16 Chlamydia DNA (PCR) Cancelled 09/16/19 11:25 N.gonorrhoeae DNA (PCR) Cancelled 09/16/19 11:25 Blood Type A POSITIVE 09/16/19 13:16 Antibody Screen NEGATIVE 09/16/19 13:16 Plan Plan of Treatment: f/u at [facility] in 1 week for incision check
[2019-09-19 11:40] VITALS: BP 114/62
--- NOTE | 2019-09-21 12:37 | Delivery Summary ---
Del Sum A-C Datetime Report Generated by CPN: 09/21/2019 12:37 DELIVERY PERSONNEL DELIVERY PERSONNEL: [id number] Delivery Doctor:: Irina Corcoran MD Delivery Doctor:: Irina Corcoran MD Anesthesiologist:: Bessy Carlton MD Anesthesiologist:: Bessy Carlton MD GEOTHERMAL ELECTRICAL ENGINEER:: Avelino Stapleton CRNA GEOTHERMAL ELECTRICAL ENGINEER:: Avelino Stapleton CRNA Labor and Delivery Nurse:: Jennifer Paulson RN Labor and Delivery Nurse:: Ale Cuellar RN Airplane Tester:: Ale Cuellar RN Airplane Tester:: Jennifer Paulson RN Neonatal Nurse Practitioner:: SIGIFREDO Gramajo Nursery Nurse:: Michelle Green RN Nursery Nurse:: Kassie Allen RN Student Observers:: Castro [place] Nurse Lead Electrical Engineer/WATCH ASSEMBLY INSPECTOR: ST Hien Lead Electrical Engineer/WATCH ASSEMBLY INSPECTOR: Emma Cristina GIS DATABASE ADMINISTRATOR Lead Electrical Engineer/WATCH ASSEMBLY INSPECTOR: ST Win Lead Electrical Engineer/WATCH ASSEMBLY INSPECTOR: ST Hien MATERNAL INFORMATION Delivery Anesthesia: Spinal Medications After Delivery: Pitocin Bolus-Please Comment Meds After Delivery Comment: Pitocin 20 Units IV Delivery QBL: 1246 Maternal Complications: Other Complication Details: Labor at 34.5 weeks LABOR SUMMARY EDC: 10/23/2019 00:00 No. Babies in Womb: 2 Attempted: No Labor Anesthesia: None LABOR INFORMATION Reason for Induction: Not Applicable Oxytocin: N/A Group B Beta Strep: positive Antibiotics # of Doses: 1 Antibiotics Time of Last Dose: 13:42 Name of Antibiotic Given: Clindamycin Steroids Given: Full Course; > 24 Hours before Delivery Reason Steroids Not Administered: Indication MEMBRANES Membranes Rupture Method: Artificial Rupture of Membranes: 09/16/2019 14:54 Length of Rupture (hr): 0.02 Amniotic Fluid Color: Clear Amniotic Fluid Amount: Large Amniotic Fluid Odor: None STAGES OF LABOR Stage 3 hr: 0 Stage 3 min: 3 VAGINAL DELIVERY Episiotomy: None Laceration #1: None Laceration Extension #1: N/A CSECTION DELIVERY Primary Indication: Multiple Gestation Secondary Indication: Breech Presentation Other Secondary Indication: Baby B CSection Urgency: Non-Scheduled CSection Incidence: Primary Labor: Labor Elective: Nonelective CSection Incision: Lower Uterine Transverse CSection Incision: Lower Uterine Transverse Other Sterilization Procedure: Filshie Clips BABY A INFORMATION Infant Delivery Date/Time: 09/16/2019 14:55 Method of Delivery: Born in Route : No : N/A Forceps: N/A Vacuum Extraction: N/A Shoulder Dystocia : No PRESENTATION/POSITION BABY A Presentation: Cephalic Cephalic Presentation: Vertex Breech Presentation: N/A PLACENTA INFORMATION BABY A Placenta Delivery Time : 09/16/2019 14:58 Placenta Method of Delivery: Manual Removal Placenta Status: Delivered SCORES BABY A Heart Rate 1 min: >100 bpm Resp Effort 1 min: Good Cry Reflex Irritability 1 min: Cough or Sneeze or Pulls Away Muscle Tone 1 min: Active Motion Color 1 min: Body [place], Extremities Blue Resuscitation Effort 1 min: Tactile Stimulation SCORE 1 MIN: 9 Heart Rate 5 min: >100 bpm Resp Effort 5 min: Good Cry Reflex Irritability 5 min: Cough or Sneeze or Pulls Away Muscle Tone 5 min: Active Motion Color 5 min: Body [place], Extremities Blue Resuscitation Effort 5 min: Tactile Stimulation SCORE 5 MIN: 9 INFANT INFORMATION BABY A Gestational Age at Delivery: 34.5 Gestational Status: Late - 34- 36.6 Weeks Infant Outcome : Liveborn Infant Condition : Stable Infant Sex: Male IDENTIFICATION BABY A Verification Date/Time: 09/16/2019 15:10 ID Band Number: [id number] Mother's Name Verified: Yes RN Verifying Infant: Benito Cuellar, RN Additional Verifying Personnel: Christina Paulson RN WEIGHT/LENGTH BABY A Infant Birthweight (gm): 2948 Infant Weight (lb): 6 Weight (oz): 8 Length (in): 18.00 Infant Length (cm): 45.72 CORD INFORMATION BABY A No. Cord Vessels: 3 Nuchal Cord : N/A Cord Blood Taken: Yes-For Storage (Mom's Blood type +) Infant Suction: Mouth ASSESSMENT BABY A Infant Complications: Other Infant Complications- Other: Physical Findings at Delivery: Within Normal Limits Respirations: Appears Normal Skin to Skin: No Youth Teacher/ALS Called : No Care By: SIGIFREDO Canales and Gabriele Harrison RN Transferred To: NICU BABY B INFORMATION Infant Delivery Date/Time: 09/16/2019 14:57 Delivery Date/Time: 09/16/2019 14:57 Method of Delivery : Method of Delivery : Born in Route : No : N/A Forceps : N/A Vacuum Extraction: N/A Shoulder Dystocia : No SHOULDER DYSTOCIA BABY B Infant Delivery Date/Time: 09/16/2019 14:57 Infant Delivery Date/Time: 09/16/2019 14:57 PRESENTATION/POSITION BABY B Presentation : Breech Breech Position: Double Footling ROM/PLACENTA INFO BABY B Rupture of Membranes: 09/16/2019 14:56 Length of Rupture (hr): 0.02 Placenta Delivery Time : 09/16/2019 14:58 Placenta Method of Delivery: Manual Removal Placental Status : Delivered SCORES BABY B Heart Rate 1 min: >100 bpm Resp Effort 1 min: Good Cry Reflex Irritability 1 min: Cough or Sneeze or Pulls Away Muscle Tone 1 min: Active Motion Color 1 min: Blue/Pale Resuscitation Effort 1 min: Tactile Stimulation SCORE 1 MIN: 8 Heart Rate 5 min: >100 bpm Resp Effort 5 min: Good Cry Reflex Irritability 5 min: Cough or Sneeze or Pulls Away Muscle Tone 5 min: Active Motion Color 5 min: Body [place], Extremities Blue Resuscitation Effort 5 min: Tactile Stimulation; Oxygen SCORE 5 MIN: 9 INFORMATION BABY B Gestational Age at Delivery: 34.5 Gestational Status : Late - 34- 36.6 Weeks Outcome : Liveborn Infant Condition : Stable Sex : Male IDENTIFICATION BABY B Verification Date/Time: 09/16/2019 15:10 ID Band Number : [id number] Mother's Name Verified: Yes RN Verifying Infant: Benito Cuellar BRITT Additional Verifying Personnel: Dedra Paulson RN WEIGHT/LENGTH BABY B Infant Birthweight (gm): 3134 Weight (lb) : 6 Weight (oz): 15 Length (in): 19.75 Infant Length (cm): 50.17 CORD INFORMATION BABY B No. Cord Vessels : 3 Nuchal Cord : N/A Cord Blood Taken : Yes-For Storage (Mom's Blood Type +) ASSESSMENT BABY B Complications : Other Complications- Other: Physical Findings at Delivery: Within Normal Limits Skin to Skin: No Youth Teacher/ALS Called : No Infant Care By : David Green RN, John Marino, BRITT, and SIGIFREDO Canales Transfer To: NICU
== END 2019-09-19 17:58 | disposition home or self-care (01) | DRG 785 ==
LOC: LC 11:14 → LR 12:40 → 2N 18:35
PROVIDERS: ADMIT Obstetrics & Gynecology; ATTEND Obstetrics & Gynecology
PROC: 10D00Z1 Extraction of Products of Conception, Low, Open Approach (ICD-10-PCS; principal; 2019-09-16)
PROC: 0UL70CZ Occlusion of Bilateral Fallopian Tubes with Extraluminal Device, Open Approach (ICD-10-PCS; 2019-09-16)
DX: O60.14X0 Preterm labor third trimester with preterm delivery third trimester, not applicable or unspecified (principal); O30.043 Twin pregnancy, dichorionic/diamniotic, third trimester; O99.824 Streptococcus B carrier state complicating childbirth; Z30.2 Encounter for sterilization; Z3A.34 34 weeks gestation of pregnancy; Z37.2 Twins, both liveborn; Z37.0 Single live birth
CPT/HCPCS: 1961; 36415; 80307; 81001; 84112; 85025; 86592; 86850; 86900; 86901; 88307; 94799; J0131; J1170; J1885; J2250; J2370; J2405; J2590; J3010; J3490